=== PATIENT | male | born 1975 | race African-American/Black ===

== ENCOUNTER 2019-07-12 16:02 | Emergency (ER) | payer MEDICAID ==
[~2019-07-12] VITALS: Ht 180.3 cm; Wt 76.0 kg
[~2019-07-12 16:02] MED LIST: CITA10TA8 PO; CLON1TAB PO; HYDR25CA PO; TRAZ-137 PO
[2019-07-12 16:03] VITALS: BP 129/86
[2019-07-12] MEDS ORDERED: AZITHROMYCIN 500 MG TABLET ONE (16:23)
[2019-07-12] MEDS ORDERED: CEFTRIAXONE 250 MG ONE (16:23)
[2019-07-12] MEDS ORDERED: CEFTRIAXONE 250 MG IM ONE (16:30)
[2019-07-12] MEDS ORDERED: DIPHENHYDRAMINE 25 MG CAPSULE PO ONE (16:30)
[2019-07-12] MEDS ORDERED: AZITHROMYCIN 500 MG TABLET PO ONE (16:30)
[2019-07-12 17:22] LABS: CULTURE INDICATED? YES; MICROSCOPIC INDICATED
== END 2019-07-12 18:04 | disposition home or self-care (01) ==
LOC: ED 17:45
DX: A74.9 Chlamydial infection, unspecified (principal); A54.9 Gonococcal infection, unspecified; F17.200 Nicotine dependence, unspecified, uncomplicated; F31.9 Bipolar disorder, unspecified; F41.1 Generalized anxiety disorder
CPT/HCPCS: 81001; 87077; 87086; 87491; 87591; 96372; 99283; J0696